=== PATIENT | female | born 1980 | race Caucasian/White ===

== ENCOUNTER 2017-05-27 16:56 | Emergency (ER) | payer OTHER ==
--- NOTE | 2017-05-27 17:48 | ER Document Report ---
ED Medical Screen (RME) - General Chief Complaint: Abdominal Pain Stated Complaint: ABDOMINAL PAIN Time Seen by Provider: 05/27/17 17:46 Notes: RME DISCLOSURE I have seen this patient as part of a Rapid Medical Evaluation and, if applicable, placed any initially appropriate orders. The patient will be seen and fully evaluated, including a full history and physical exam, by a provider ( in Main ED or Fast Track) when a room becomes available. 36-year-old female here with complaints of right lower quadrant abdominal pain and right pelvic pain ongoing for the past few days intermittent. Not worse with anything in particular other than pressing on the area. She has a history of ovarian cyst. She was seen at the urgent care and they sent her here to rule out ovarian torsion. She denies vaginal bleeding discharge. She does not have her appendix as it was surgically removed. TRAVEL OUTSIDE OF THE [place] IN LAST 30 DAYS: No - Related Data Allergies/Adverse Reactions: aspirin [Aspirin] Allergy (Unknown, Verified 05/27/17 16:59) unknown oxycodone HCl [From Percocet] Allergy (Unknown, Verified 05/27/17 16:59) Unknown Past Medical History - Past Medical History Cardiac Medical History: Denies: Hx Coronary Artery Disease, Hx Heart Attack, Hx Hypertension Pulmonary Medical History: Reports: Hx Pneumonia - age 14 Denies: Hx Asthma, Hx Bronchitis, Hx COPD Neurological Medical History: Denies: Hx Cerebrovascular Accident, Hx Seizures Musculoskeltal Medical History: Denies Hx Arthritis - Immunizations Hx Diphtheria, Pertussis, Tetanus Vaccination: No Physical Exam - Vital signs Vitals: Temp Pulse Resp BP Pulse Ox 97.8 F 73 16 134/74 H 99 05/27/17 17:02 05/27/17 17:02 05/27/17 17:02 05/27/17 17:02 05/27/17 17:02 Course - Vital Signs Vital signs: Temp Pulse Resp BP Pulse Ox 97.8 F 73 16 134/74 H 99 05/27/17 17:02 05/27/17 17:02 05/27/17 17:02 05/27/17 17:02 05/27/17 17:02
[2017-05-27 19:17] LABS: ABSOLUTE EOSINOPHILS # (AUTO) 0.1 10^3/uL (0.0-0.6); ABSOLUTE LYMPHOCYTES (AUTO) 1.1 10^3/uL (0.5-4.7); ABSOLUTE MONOCYTES (AUTO) 0.3 10^3/uL (0.1-1.4); ABSOLUTE NEUT (AUTO) 4.3 10^3/uL (1.7-8.2); BASOPHILS % (AUTO) 0.8 % (0-2); EOSINOPHILS % (AUTO) 1.7 % (0-6); HEMATOCRIT 40.5 % (36.0-47.0); HEMOGLOBIN 13.6 g/dL (12.0-15.5); LYMPHOCYTES % (AUTO) 18.3 % (13-45); MEAN CORPUSCULAR HEMOGLOBIN 29.4 pg (27.0-33.4); MEAN CORPUSCULAR HGB CONC 33.5 g/dL (32.0-36.0); MEAN CORPUSCULAR VOLUME 88 fl (80-97); MONOCYTES % (AUTO) 5.3 % (3-13); PLATELET COUNT 238 10^3/uL (150-450); RED BLOOD COUNT 4.63 10^6/uL (3.72-5.28); RED CELL DISTRIBUTION WIDTH 13.1 % (11.5-14.0); SEGMENTED NEUTROPHILS % (AUTO) 73.9 % (42-78); TOTAL CELLS COUNTED % (AUTO) 100 %; WHITE BLOOD COUNT 5.8 10^3/uL (4.0-10.5)
--- NOTE | 2017-05-27 19:19 | ER Document Report ---
ED General - General Chief Complaint: Abdominal Pain Stated Complaint: ABDOMINAL PAIN Time Seen by Provider: 05/27/17 17:46 Notes: Patient is a 36-year-old female with a past medical history of an appendectomy and hysterectomy who presents with 3 days of right lower abdominal pain. She describes this as an intermittent, stabbing, mild to moderate pain. Pain frequency has overall been unchanged since onset. Nothing improves the pain. Bending or lifting objects seems to worsen the pain. She states that she has had similar symptoms in the past with ovarian cysts. She has not seen her primary doctor regarding today's concerns. She denies any associated vaginal bleeding, dysuria, vaginal discharge, nausea, vomiting or diarrhea. No fever or constitutional symptoms. She denies any trauma to the abdomen. TRAVEL OUTSIDE OF THE [place] IN LAST 30 DAYS: No - Related Data Allergies/Adverse Reactions: aspirin [Aspirin] Allergy (Unknown, Verified 05/27/17 16:59) unknown oxycodone HCl [From Percocet] Allergy (Unknown, Verified 05/27/17 16:59) Unknown Past Medical History - General Information source: Patient - Social History Smoking Status: Former Smoker Chew tobacco use (# tins/day): No Frequency of alcohol use: None Drug Abuse: None Lives with: Spouse/Significant other Family History: Reviewed & Not Pertinent Patient has suicidal ideation: No Patient has homicidal ideation: No - Past Medical History Cardiac Medical History: Denies: Hx Coronary Artery Disease, Hx Heart Attack, Hx Hypertension Pulmonary Medical History: Reports: Hx Pneumonia - age 14 Denies: Hx Asthma, Hx Bronchitis, Hx COPD Neurological Medical History: Denies: Hx Cerebrovascular Accident, Hx Seizures Renal/ Medical History: Denies: Hx Peritoneal Dialysis Musculoskeltal Medical History: Denies Hx Arthritis Past Surgical History: Reports: Hx Appendectomy - Immunizations Hx Diphtheria, Pertussis, Tetanus Vaccination: No Hx Pneumococcal Vaccination: 06/22/10 Review of Systems - Review of Systems Notes: Constitutional: Negative for fever. HENT: Negative for sore throat. Eyes: Negative for visual changes. Cardiovascular: Negative for chest pain. Respiratory: Negative for shortness of breath. Gastrointestinal: Positive for abdominal pain Genitourinary: Negative for dysuria. Musculoskeletal: Negative for back pain. Skin: Negative for rash. Neurological: Negative for headaches, weakness or numbness. 10 point ROS negative except as marked above and in HPI. Physical Exam - Vital signs Vitals: Temp Pulse Resp BP Pulse Ox 97.8 F 73 16 134/74 H 99 05/27/17 17:02 05/27/17 17:02 05/27/17 17:02 05/27/17 17:02 05/27/17 17:02 Interpretation: Normal Notes: PHYSICAL EXAMINATION: GENERAL: Well-appearing, well-nourished and in no acute distress. HEAD: Atraumatic, normocephalic. EYES: Pupils equal round and reactive to light, extraocular movements intact, sclera anicteric, conjunctiva are normal. ENT: nares patent, oropharynx clear without exudates. Moist mucous membranes. NECK: Normal range of motion, supple without lymphadenopathy LUNGS: Breath sounds clear to auscultation bilaterally and equal. No wheezes rales or rhonchi. HEART: Regular rate and rhythm without murmurs ABDOMEN: Soft, mild right adnexal tenderness no other localized areas of tenderness, normoactive bowel sounds. No guarding, no rebound. No masses appreciated. EXTREMITIES: Normal range of motion, no pitting or edema. No cyanosis. NEUROLOGICAL: No focal neurological deficits. Moves all extremities spontaneously and on command. PSYCH: Normal mood, normal affect. SKIN: Warm, Dry, normal turgor, no rashes or lesions noted. Course - Re-evaluation Re-evalutation: 05/27/17 19:18 Patient presents with 2 days of intermittent right adnexal, right lower quadrant abdominal pain. The pain is intermittent, although is present on palpation of the right adnexa on examination. The patient is a 29 status post appendectomy and her clinical history and examination as well as appearance are not consistent with an ovarian torsion or tubo-ovarian abscess. Labs and vitals are within acceptable limits. She is already status post hysterectomy. Will obtain transvaginal ultrasound to further evaluate the right ovary although patient's clinical history appears most consistent likely a musculoskeletal strain as she reports that the pain is worsened with attempts at lifting or movement of the abdominal wall. I do not clinically suspect a more life-threatening pathology at this time based on her overall evaluation. 05/27/17 21:14 Transvaginal ultrasound does not well visualize the right ovary only trace fluid is noted suggestive of possible ruptured ovarian cyst. Patient has had improvement with oral analgesics here in the emergency department. I discussed with her the possibility of muscular skeletal injury versus a possible ruptured ovarian cyst. At this time will discharge with return precautions and follow- up recommendations. Verbal discharge instructions given a the bedside and opportunity for questions given. Medication warnings reviewed. Patient is in agreement with this plan and has verbalized understanding of return precautions and the need for primary care follow-up in the next 24-72 hours. - Vital Signs Vital signs: Temp Pulse Resp BP Pulse Ox 97.7 F 73 18 130/76 H 98 05/27/17 21:27 05/27/17 21:27 05/27/17 21:27 05/27/17 21:27 05/27/17 21:27 - Laboratory Result Diagrams: 05/27/17 19:00 05/27/17 19:00 Laboratory results interpreted by me: 05/27/17 05/27/17 19:00 19:20 Carbon Dioxide 31 H Urine Ascorbic Acid 20 H - Diagnostic Test Radiology reviewed: Reports reviewed Discharge - Discharge Clinical Impression: Right lower quadrant abdominal pain Condition: Good Disposition: HOME, SELF-CARE Additional Instructions: You have been seen in the Emergency Department (ED) for abdominal pain. Your evaluation did not identify a clear cause of your symptoms but was generally reassuring. It does suggest that she likely had a ruptured ovarian cyst under ultrasound although alternatively your pain could be musculoskeletal in origin. For your pain: Take ibuprofen 600 mg and acetaminophen 1000 mg every 6 hours together as needed for pain. Please follow up with your doctor as soon as possible regarding today's emergent visit and the symptoms that are bothering you. Return to the ED if your abdominal pain worsens or fails to improve, you develop bloody vomiting, bloody diarrhea, you are unable to tolerate fluids due to vomiting, fever greater than 101, or other symptoms that concern you.
[2017-05-27] MEDS ORDERED: IBUPROFEN 600 MG TABLET PO ONE (19:20)
[2017-05-27] MEDS ORDERED: ACETAMINOPHEN 325 MG TABLET PO ONE (19:20)
[2017-05-27] MEDS ORDERED: LIDOCAINE 5% (700 MG) TRANSDERMAL ADH..PATCH TP ONE (19:20)
[2017-05-27 19:33] LABS: ALANINE AMINOTRANSFERASE 45 U/L (9-52); ALBUMIN 4.4 g/dL (3.5-5.0); ALKALINE PHOSPHATASE 87 U/L (38-126); ANION GAP 9 (5-19); ASPARTATE AMINO TRANSFERASE 24 U/L (14-36); BILIRUBIN,DIRECT 0.3 mg/dL (0.0-0.4); BILIRUBIN,TOTAL 0.5 mg/dL (0.2-1.3); BLOOD UREA NITROGEN 12 mg/dL (7-20); CALCIUM 9.7 mg/dL (8.4-10.2); CARBON DIOXIDE 31 mmol/L (22-30); CHLORIDE 101 mmol/L (98-107); GLUCOSE 87 mg/dL (75-110); POTASSIUM 3.9 mmol/L (3.6-5.0); SODIUM 141.1 mmol/L (137-145); TOTAL PROTEIN 7.2 g/dL (6.3-8.2)
[2017-05-27 19:37] LABS: APPEARANCE,URINE CLEAR; BILIRUBIN,URINE NEGATIVE (NEGATIVE); COLOR,URINE YELLOW; GLUCOSE, URINE NEGATIVE (NEGATIVE); KETONES,URINE NEGATIVE (NEGATIVE); LEUKOCYTE ESTERASE,URINE NEGATIVE (NEGATIVE); NITRITE,URINE NEGATIVE (NEGATIVE); PROTEIN,URINE NEGATIVE (NEGATIVE); URINE SPECIFIC GRAVITY 1.008; UROBILINOGEN,URINE NEGATIVE mg/dL (<2.0)
--- NOTE | 2017-05-27 21:00 | RADIOLOGY REPORT (SQ) ---
EXAM DESCRIPTION: U/S NON OB PEL TV W/DOPPLER COMPLETED DATE/TIME: 05/27/2017 7:55 pm REASON FOR STUDY: R adnexal pain; eval torion COMPARISON: None. TECHNIQUE: Dynamic and static grayscale images acquired of the pelvis via transvaginal approach and recorded on PACS. Additional selected color Doppler and spectral images recorded. LIMITATIONS: None. FINDINGS: Uterus and Right and left ovaries are not visualized. Trace free fluid. IMPRESSION: Uterus and Right and left ovaries are not visualized. Trace free fluid. TECHNICAL DOCUMENTATION: JOB ID: [id number] [id number] 2010 [employer]- All Rights Reserved Reading location - IP/workstation name: [email or web address]
[2017-05-27 21:28] VITALS: BP 130/76
== END 2017-05-27 21:27 | disposition home or self-care (01) ==
LOC: ER 16:56
DX: R10.31 Right lower quadrant pain (principal); Z90.710 Acquired absence of both cervix and uterus; Z88.6 Allergy status to analgesic agent; Z87.891 Personal history of nicotine dependence
CPT/HCPCS: 36415; 76830; 80053; 81001; 84703; 85025; 93976; 99284